=== PATIENT | female | born 1980 | race Caucasian/White ===

== ENCOUNTER → 2017-03-07 | Outpatient (CLI) | payer BC | LOC: MC.RAD 09:56 | DX: N63 Unspecified lump in breast (principal) ==

== ENCOUNTER → 2018-06-27 | Outpatient (CLI) | payer BC | LOC: MC.RAD 06-24 13:00 | DX: N60.01 Solitary cyst of right breast (principal); N63.32 Unspecified lump in axillary tail of the left breast | CPT/HCPCS: G0279 ==

== ENCOUNTER → 2019-02-26 | Outpatient (CLI) | payer BC | LOC: COL.PUL 11:13 | DX: R06.09 Other forms of dyspnea (principal) ==